=== PATIENT | female | born 1980 | race Caucasian/White ===

== ENCOUNTER 2017-10-12 17:41 | Emergency (ER) | payer SELFPAY ==
[~2017-10-12] VITALS: Ht 162.6 cm; Wt 130.0 kg
[2017-10-12 17:52] VITALS: BP 150/90; PULSE 63; RESP 16; TEMP 98.6; O2SAT 98
[2017-10-12] MEDS ORDERED: IBUP1TAB7 PO (18:51)
[2017-10-12] MEDS ORDERED: PERI0.126 SWISH-SPIT (18:51)
[2017-10-12] MEDS ORDERED: AMOX500C PO (18:51)
--- NOTE | 2017-10-12 18:51 | PD ---
HPI Chief Complaint: Oral / Dental Pain or Problem Time Seen by Provider: 18:27 Travel History International Travel<30 days: No Contact w/Intl Traveler<30days: No Traveled to known affect area: No History of Present Illness HPI 37-year-old female presents to emergency department with complaint of left upper dental pain for the past 5-6 hours. A while ago the filling fell out of her tooth and she started having pain today. Denies fever, vomiting. Rates pain 10/10. Describes as as throbbing. Has taken ibuprofen with no relief of symptoms. No known relieving factors. Pain is constantly aggravated. Does not have a dentist. No primary care provider. Allergies to codeine and Percocet. Denies significant past medical history. Has no other medical complaints. No other modifying factors or associated signs and symptoms. PFSH Past Medical History Medical History: Denies Significant Hx ?: Unknown LMP: UNKNOWN Ovarian Cysts: Yes (removed left ovary and fallopian tube) Past Surgical History Genitourinary Surgery: Yes (urethra) Social History Alcohol Use: No Tobacco Use: No Substance Use: No Allergies-Medications (Allergen,Severity, Reaction): Coded Allergies: acetaminophen (Verified Allergy, Unknown, Rash, 10/12/17) codeine (Verified Allergy, Unknown, Hives, 10/12/17) oxycodone (Verified Allergy, Unknown, Rash, 10/12/17) Reported Meds & Prescriptions Reported Meds & Active Scripts Active Ibuprofen 800 Mg Tab 800 Mg PO Q6HR PRN Peridex Liq (Chlorhexidine Gluconate (Mouth) Liq) 0.12% Soln 15 Ml SWISH-SPIT BID 10 Days Amoxicillin 500 Mg Cap 500 Mg PO BID 10 Days Review of Systems Except as stated in HPI: all other systems reviewed are Neg Physical Exam Narrative GENERAL: Well-nourished, well-developed female patient, in no acute distress; afebrile, nontoxic-appearing SKIN: Warm and dry. HEAD: Atraumatic. Normocephalic. No facial edema, erythema, tenderness on palpation. No lymphadenopathy. EYES: Pupils equal and round. No scleral icterus. No injection or drainage. ENT: Mucosa pink and moist. No erythema or exudates. No uvular edema. No uvular , palatal, or tonsillar deviation. Airway patent. EARS: Bilateral pinnae and external canals appear within normal limits. Bilateral tympanic membranes without erythema, dullness or perforation. MOUTH: Mucous membranes moist, no lesions, tongue and gums appear normal. Poor dentition throughout with multiple dental cavities noted. Tooth #11 with tenderness on palpation; large dental cavity noted. Surrounding gingiva is without erythema, edema, drainage. No obvious abscess noted. NECK: Trachea midline. No lymphadenopathy. CARDIOVASCULAR: Regular rate. RESPIRATORY: No accessory muscle use. GASTROINTESTINAL: Obese. MUSCULOSKELETAL: No obvious deformities. No clubbing. No cyanosis. No edema. NEUROLOGICAL: Awake and alert. Oriented 3. No obvious cranial nerve deficits. Motor grossly within normal limits. Normal speech. PSYCHIATRIC: Appropriate mood and affect; insight and judgment normal. Data Data Last Documented VS Vital Signs Date Time Temp Pulse Resp B/P (MAP) Pulse Ox O2 Delivery O2 Flow Rate FiO2 10/12/17 17:52 98.6 63 16 150/90 (110) 98 Orders Orders Ed Discharge Order (10/12/17 18:51) Ketorolac Inj (Toradol Inj) (10/12/17 19:00) MDM Medical Decision Making Medical Screen Exam Complete: Yes Emergency Medical Condition: Yes Medical Record Reviewed: Yes Differential Diagnosis Dental cavities, dental abscess, infected dental cavities, gingivitis, dentalgia Narrative Course 37-year-old female with tooth #11 with tenderness to palpation and large dental cavity noted. No facial edema or erythema. Patient is afebrile and nontoxic- appearing. Denies fever, vomiting. Emergency dental information sheet provided for follow-up. Toradol administered in the ER. Amoxicillin, ibuprofen , Peridex mouth rinse prescribed for home. Instructed patient to follow-up with dentist. Instructed patient to follow up with primary care provider. Patient verbalizes understanding and agreement with treatment plan. Patient is medically cleared and stable for discharge. Discussed reasons to return to the emergency department. Patient agrees with treatment plan. The patients vital signs are stable and the patient is stable for outpatient follow-up and treatment. Patient discharged home, stable and in no acute distress. Diagnosis Primary Impression: Tooth pain Additional Impression: Dental cavities Referrals: [facility]ist Primary Care Physician Patient Instructions: Dental Abscess (ED), Dental Caries (ED), General Instructions, Toothache (ED) Additional Instructions: Complete full course of antibiotics Ibuprofen or Tylenol as directed and as needed to reduce pain and inflammation Use Magic mouthwash rinse as directed and as needed to decrease pain Use Peridex as directed for oral hygiene Warm or cool compresses to the affected area Follow-up with dentist Follow-up with primary care provider Return to emergency department immediately with worsening of symptoms Med/Other Pt SpecificInfo: Prescription(s) given Scripts Ibuprofen (Ibuprofen) 800 Mg Tab 800 MG PO Q6HR Y for PAIN, #30 TAB 0 Refills Prov: Carolyn Patten 10/12/17 Chlorhexidine Gluconate (Mouth) Liq (Peridex Liq) 0.12% Soln 15 ML SWISH-SPIT BID for 10 Days, #300 ML 0 Refills Prov: Carolyn Patten 10/12/17 Amoxicillin (Amoxicillin) 500 Mg Cap 500 MG PO BID for Infection for 10 Days, #20 CAP 0 Refills Prov: Carolyn Patten 10/12/17 Disposition: 01 DISCHARGE HOME Condition: Stable Carolyn Patten Oct 12, 2017 18:51
[2017-10-12] MEDS ORDERED: KETOROLAC TROMETHAMINE 60 MG/2 ML (IM) VIAL IM ONE (19:00)
== END 2017-10-12 19:25 | disposition home or self-care (01) ==
LOC: NEPD 17:41
DX: K02.9 Dental caries, unspecified (principal); Z88.5 Allergy status to narcotic agent; Z88.6 Allergy status to analgesic agent
CPT/HCPCS: 96372; 99283; J1885